=== PATIENT | male | born 1990 | race Hispanic/Latino ===

== ENCOUNTER 2018-08-27 08:18 | Outpatient (CLI) | payer OTHER ==
--- NOTE | 2018-08-27 08:53 | ULT ---
ABDOMINAL ULTRASOUND HISTORY: Abdominal pain. FINDINGS: Liver: Increased echogenicity suggesting diffuse fatty infiltration. However, given the degree of fat ty infiltration, portions of the right hepatic lobe are not well visualized and lesion within the liver cannot be entirely excluded based on this exam. The liver is enlarged measuring 23 cm in cranio caudal dimensions. Gallbladder: Not visualized. Patient reports history of prior cholecystectomy. Common duct: Unable to be visualized. Pancreas: Mostly obscured by bowel gas. IVC: Limited visualized IVC has a normal sonographic appearance. Aorta: Normal in caliber where visualized. Spleen: Within normal limits. Kidneys: Portions of the right kidney are not well visualized on this exam limiting adequate evaluati on. Right kidney is otherwise grossly within normal limits and measures 11.4 cm in length. The left kidney demonstrates a normal sonographic appearance and measures 11.9 cm in length. IMPRESSION: 1. Diffuse fatty infiltration of the liver which limits adequate evaluation of the right hepatic lobe , and a lesion in the right hepatic lobe would be difficult to entirely exclude based on this exam. There is evidence of hepatomegaly. 2. Postcholecystectomy changes. The common duct is not visualized.
== END 2018-08-27 08:19 | disposition home or self-care (01) ==
LOC: BICULT 08:18
PROVIDERS: ATTEND Family Medicine
DX: R10.84 Generalized abdominal pain (principal); K76.0 Fatty (change of) liver, not elsewhere classified; Z90.49 Acquired absence of other specified parts of digestive tract
CPT/HCPCS: 76700

== ENCOUNTER 2019-02-24 07:56 | Emergency (ER) | payer SELFPAY ==
[2019-02-24] MEDS ORDERED: Ondansetron PF 4 MG/2 ML Vial ONE (08:38)
[2019-02-24] MEDS ORDERED: Morphine 4 MG/ML VIAL ONE (08:38)
[2019-02-24 08:54] LABS: #Eosinphils 0.1 thou/uL (0.0-0.7); #Lymphocytes 1.6 thou/uL (1.20-3.40); #Monocytes 0.4 thou/uL (0.11-0.59); #Neutrophils 4.8 thou/uL (1.40-6.50); %Basophils 0.6 % (0.0-1.0); %Eosinophils 0.8 % (0.0-10.0); %Lymphocytes 22.9 % (21.0-51.0); %Monocytes 5.2 % (0.0-10.0); %Neutrophils 70.6 % (42.0-75.0); Hemoglobin 15.7 g/dL (14.0-18.0); Mean Corpuscular HGB CONC 34.9 g/dL (32.0-36.0); Mean Corpuscular Hemoglobin 29.9 pg (27.0-31.0); Mean Corpuscular Volume 85.8 fL (78.0-98.0); Mean Platelet Volume 9.3 fL (7.4-10.4); Platelet Count 191 thou/uL (130-400); RBC Distribution Width 12.7 % (11.5-14.5); Red Blood Cell (RBC) Count 5.26 mill/uL (4.70-6.10); White Blood Cell (WBC) Count 6.8 thou/uL (4.8-10.8)
[2019-02-24 09:17] LABS: ALT (SGPT) 98 U/L (8-55); AST (SGOT) 50 U/L (5-34); Albumin 4.5 g/dL (3.5-5.0); Alkaline Phosphatase 80 U/L (40-110); Anion Gap 16 mmol/L (10-20); BUN (Urea Nitrogen) 12 mg/dL (8.9-20.6); Bilirubin, Total 0.8 mg/dL (0.2-1.2); CK (CPK) 180 U/L (30-200); Calc. Creatinine Clearance 0 mL/min (70-130); Calcium 9.9 mg/dL (7.8-10.44); Carbon Dioxide 25 mmol/L (22-29); Chloride 102 mmol/L (98-107); Estimated GFR-MDRD Greater than 90; Globulin 2.7 g/dL (2.4-3.5); Glucose 258 mg/dL (70-105); Protein, Total 7.2 g/dL (6.0-8.3); Sodium 139 mmol/L (136-145)
--- NOTE | 2019-02-24 09:22 | ULT ---
Scrotal sonogram with duplex evaluation HISTORY: Right scrotal pain. FINDINGS: Right testicle measures up to 4.6 cm and the left 4.8 cm. Each has a normal appearance with good color and spectral Doppler flow. Within the right side of the scrotum, distended venous structures becomes more engorged upon Valsalva maneuver. Tiny right epididymal head cyst. Small amount of free fluid on the right. Minimal on the left. IMPRESSION: No evidence of testicular mass or torsion. Varicocele within the right side of the scrotum. Very small bilateral hydroceles.
[2019-02-24 10:33] LABS: Bilirubin Negative (Negative); Blood, Urine Negative (Negative); Clarity Clear (Clear); Glucose, Urine (Dipstick) >=1000 mg/dL (Negative); Leukocyte Negative Leu/uL (Negative); Nitrite Negative (Negative); Protein, Urine (Dipstick) Negative (Neg-Trace); Urobilinogen Normal mg/dL (Less than 2)
--- NOTE | 2019-02-24 10:41 | CT ---
CT ABDOMEN AND PELVIS WITH IV CONTRAST: Date: 02/24/19 HISTORY: Abdominal pain. Right testicular pain. Bilateral leg pain and back pain. FINDINGS: The lung bases are clear. The patient is post cholecystectomy. The liver demonstrates decreased atten uation compared to the spleen, consistent with fatty infiltration. No hepatic mass or abnormal biliar y dilatation is seen. The spleen, pancreas, adrenal glands, and kidneys are normal. An axillary splen ule is seen posterior to the spleen itself. No free air, free fluid, or lymphadenopathy noted in the abdomen or pelvis. The small bowel loops are not abnormally dilated. A normal appearing appendix is seen. No acute osseous lesions are noted. IMPRESSION: 1. No evidence of acute process. 2. Fatty liver. POS: [facility]
[2019-02-24] MEDS ORDERED: Iopamidol-370 76% 500 ML 1 ML ONE (13:39)
== END 2019-02-24 11:51 | disposition home or self-care (01) ==
LOC: ERS 07:56
DX: E11.65 Type 2 diabetes mellitus with hyperglycemia (principal); K76.0 Fatty (change of) liver, not elsewhere classified; I10 Essential (primary) hypertension; E78.00 Pure hypercholesterolemia, unspecified; F41.9 Anxiety disorder, unspecified; F32.9 Major depressive disorder, single episode, unspecified; Z79.899 Other long term (current) drug therapy
CPT/HCPCS: 36415; 74177; 76870; 80053; 81003; 82550; 85025; 87804; 93976; 96361; 96374; 96375; J2270; J2405; Q9967